=== PATIENT | male | born 1960 | race Caucasian/White ===

== ENCOUNTER 2017-08-31 21:13 | Emergency (ER) | payer OTHER ==
[~2017-08-31] VITALS: Ht 175.3 cm; Wt 68.0 kg
[2017-08-31] MEDS ORDERED: FINASTERIDE5 MG PO (21:50)
[2017-08-31] MEDS ORDERED: CRESTOR5 MG PO (21:50)
[2017-09-01] MEDS ORDERED: CEFUROXIME500 MG PO (01:30)
[2017-09-01] MEDS ORDERED: KETO10TA2 PO (01:30)
== END 2017-09-01 01:37 | disposition home or self-care (01) ==
LOC: ER 21:13
DX: K11.20 Sialoadenitis, unspecified (principal); H61.21 Impacted cerumen, right ear